=== PATIENT | male | born 1965 | race Caucasian/White ===

== ENCOUNTER 2021-03-01 10:57 | Inpatient (IN) | payer OTHER ==
[2021-03-01] VITALS (22 sets, daily range): BP systolic 90–149; BP diastolic 9–108; Ht 177.8 cm; Wt 113.9 kg
[~2021-03-01] VITALS: Ht 177.8 cm; Wt 113.9 kg
[2021-03-01] MEDS ORDERED: ZIPSOR25 MG PO (11:12)
[2021-03-01] MEDS ORDERED: HYDROXYCHLOROQ200 MG PO (11:13)
[2021-03-01] MEDS ORDERED: ZOLOFT100 MG PO (11:13)
[2021-03-01] MEDS ORDERED: LISINOPRIL2.5 MG PO (11:14)
[2021-03-01] MEDS ORDERED: CLARITIN 10 MG10 MG PO (11:15)
[2021-03-01 11:21] LABS: BASOPHILS 0.7 % (0-2); EOSINOPHILS 1.1 % (0-7); HEMATOCRIT 41.3 % (42.0-54.0); HEMOGLOBIN 13.4 g/dL (13.5-17.5); IMMATURE GRANULOCYTES 0.1 % (0-5); LYMPHOCYTE ABS# 1.37 10x3/uL (1.32-3.57); MCH 27.9 pg (26.0-34.0); MCHC 32.4 g/dL (31.0-37.0); MONOCYTES 12.1 % (2-11); NEUTROPHIL ABS# 6.49 10x3/uL (1.78-5.38); RDW 14.9 % (11.5-14.5); WBC 9.1 10x3/uL (4.8-10.8)
[2021-03-01 11:30] LABS: CALC OSMOLALITY 278 mosm/kg (275-300); CALCIUM 8.7 mg/dL (8.5-10.1); CARBON DIOXIDE 25.5 mmol/L (21.0-32.0); CHLORIDE - SERUM 102 mmol/L (98-107); CREATININE - SERUM 1.4 mg/dL (0.6-1.3); GLUCOSE 138 mg/dL (74-106); POTASSIUM - SERUM 3.1 mmol/L (3.5-5.1); SODIUM 137 mmol/L (136-145); UREA NITROGEN 21 mg/dL (7-18); eGFR NON AFRICAN AMERICAN 56 mL/min (90-120)
[2021-03-01 11:38] LABS: ALBUMIN 3.1 g/dL (3.4-5.0); ALKALINE PHOSPHATASE 129 U/L (30-120); ALT (SGPT) 482 U/L (10-68); AMYLASE - SERUM 23 U/L (25-115); BILIRUBIN - TOTAL 1.36 mg/dL (0.2-1.3); LIPASE 275 U/L (73-393); PROTEIN - SERUM 7.1 g/dL (6.4-8.2); TROPONIN-I < 0.017 ng/mL (0.000-0.060)
[2021-03-01 11:40] LABS: PLATELET COUNT 296 10x3/uL (130-400)
[2021-03-01 11:47] LABS: APTT 29.4 SECONDS (22.8-39.4); INR 1.52 (0.85-1.17)
[2021-03-01 12:01] LABS: CKMB 0.2 U/L (0.0-3.6); CREATINE KINASE 38 UL (21-232); PRO BNP 4436 pg/mL (0-125)
[2021-03-01 13:30] LABS: UDS - AMPHET NEGATIVE QUAL (NEGATIVE); UDS - BARB NEGATIVE QUAL (NEGATIVE); UDS - BENZO NEGATIVE QUAL (NEGATIVE); UDS - COCAINE NEGATIVE QUAL (NEGATIVE); UDS - OPIATE POSITIVE QUAL (NEGATIVE); UDS - PCP NEGATIVE QUAL (NEGATIVE); UDS - THC NEGATIVE QUAL (NEGATIVE)
[2021-03-01 13:34] LABS: BILIRUBIN NEGATIVE (NEGATIVE); KETONE NEGATIVE (NEGATIVE); NITRITE NEGATIVE (NEGATIVE)
[2021-03-01 13:35] LABS: BACTERIA OCC HPF (NONE SEEN); WHITE CELLS - URINE 0-5 HPF (0-1)
--- NOTE | 2021-03-01 16:00 | NUR ---
Pt [facility] Md aware and call to PCP aware who states to admit here. Pt and family informed.
--- NOTE | 2021-03-01 18:20 | NUR ---
RECEIVED PT TO ICU 3 VIA STRECTHER FROM ER, PT ALERT AND ORIENTED, PT PLACED ON WOOD FINISHER, st NOTED, HR 128, BP 100/82, O2 SAT 97% ON 3lnc, PIV TO RIGHT AC 20G WITH NS BOLUS INFUSING AND RAVIN AT 20MCG/MIN, PT DENIES PAIN, CALL LIGHT IN REACH, WILL MONTIOR
--- NOTE | 2021-03-01 18:25 | NUR ---
NS BOLUS AND NEOSYNEPHRINE GTT STOPPED AT 1820
--- NOTE | 2021-03-01 19:00 | NUR ---
RECEIVED BEDSIDE REPORT. ROUNDING COMPLETE. PATIENT IS ALERT AND ORIENTED, RESTING IN BED. PATIENT REMAINS SHORT OF BREATH. NO C/O PAIN. CALL LIGHT WITHIN REACH. WILL CPOC.
[2021-03-01 19:19] LABS: ERYTHROCYTE SEDIMENTATION RATE 13 mm/hr (0-20)
[2021-03-01 19:59] LABS: CKMB 0.4 U/L (0.0-3.6); CREATINE KINASE 46 UL (21-232); MAGNESIUM - SERUM 1.9 mg/dL (1.8-2.4); TROPONIN-I < 0.017 ng/mL (0.000-0.060)
--- NOTE | 2021-03-01 23:43 | NUR ---
PATIENT RESTING COMFORTABLY. NO S/S OF DISTRESS. NO C/O PAIN. BP HAS REMAINED STABLE. LAST BP 117/87. DECREASED RAVIN FROM 20 MCG TO 10 MCG. DENIED NEEDS AT THIS TIME. CALL LIGHT WITHIN REACH. WILL CPOC.
[2021-03-02] VITALS (19 sets, daily range): BP systolic 71–147; BP diastolic 44–125
[2021-03-02 01:29] LABS: CKMB 0.3 U/L (0.0-3.6); CREATINE KINASE 51 UL (21-232); TROPONIN-I < 0.017 ng/mL (0.000-0.060)
[2021-03-02 07:48] LABS: APTT 30.5 SECONDS (22.8-39.4); INR 1.53 (0.85-1.17); PROTIME 17.1 SECONDS (11.6-15.0)
[2021-03-02 07:56] LABS: ALKALINE PHOSPHATASE 117 U/L (30-120); ALT (SGPT) 403 U/L (10-68); BILIRUBIN - TOTAL 0.98 mg/dL (0.2-1.3); CALC OSMOLALITY 280 mosm/kg (275-300); CALCIUM 8.4 mg/dL (8.5-10.1); CHLORIDE - SERUM 102 mmol/L (98-107); CKMB 0.4 U/L (0.0-3.6); CREATINE KINASE 45 UL (21-232); CREATININE - SERUM 1.4 mg/dL (0.6-1.3); MAGNESIUM - SERUM 2.1 mg/dL (1.8-2.4); POTASSIUM - SERUM 3.5 mmol/L (3.5-5.1); PROTEIN - SERUM 6.8 g/dL (6.4-8.2); SODIUM 136 mmol/L (136-145); TROPONIN-I 0.017 ng/mL (0.000-0.060); UREA NITROGEN 20 mg/dL (7-18); eGFR NON AFRICAN AMERICAN 56 mL/min (90-120)
[2021-03-02 08:01] LABS: GLUCOSE 211 mg/dL (74-106)
[2021-03-02 08:17] LABS: BASOPHILS 0.7 % (0-2); EOSINOPHILS 2.7 % (0-7); HEMATOCRIT 39.6 % (42.0-54.0); HEMOGLOBIN 12.8 g/dL (13.5-17.5); IMMATURE GRANULOCYTES 0.1 % (0-5); LYMPHOCYTE ABS# 1.21 10x3/uL (1.32-3.57); LYMPHOCYTES 17.9 % (15-50); MCH 27.9 pg (26.0-34.0); MCHC 32.3 g/dL (31.0-37.0); MCV 86.3 fL (80.0-100.0); MEAN PLATELET VOLUME 10.2 fL (7.4-10.4); MONOCYTES 13.3 % (2-11); NEUTROPHIL ABS# 4.41 10x3/uL (1.78-5.38); NEUTROPHILS 65.3 % (40-80); PLATELET COUNT 287 10x3/uL (130-400); RBC 4.59 10x6/uL (4.20-6.10); RDW 15.2 % (11.5-14.5)
[2021-03-02 08:27] LABS: WBC 6.8 10x3/uL (4.8-10.8)
--- NOTE | 2021-03-02 11:44 | NUR ---
PATIENT TRANSFERED TO ICU 6 FROM THE FLOOR AND REPORT TAKEN FROM JOVANY. IV NOT WORKING AND NUMEROUS ATTEMPT DONE AND [address] LEFT AC IN PLACE AT THIS TIME AND HEPARIN INFUSING PER ORDERS. PURE WICK PLACED AND PATIENT IS INCONTINENT AT ALL TIMES. ORDERS NOTED.
--- NOTE | 2021-03-02 14:15 | CN ---
PATIENT NAME:SARTHAK MEZA MEDICAL RECORD: [id number] : 67 LOCATION:[facility].2303 ADMIT DATE: 03/01/21 ACCOUNT: [id number] CONSULTING PHYSICIAN: RADHA CATHERINE MD REFERRING PHYSICIAN: EDDIE ROMERO MD DATE OF CONSULTATION: 03/01/2021 CARDIOLOGY CONSULTATION HISTORY OF PRESENT ILLNESS: A 55-year-old gentleman with history of hypertension and heavy alcohol use, presented in the ER with approximately a month history of symptoms of heart racing, shortness of breath, generalized malaise, fatigue and noticed over the last week increasing edema. Symptoms finally began progressing to class II-III symptomatology and he presented to the ER. He is noted to be in both atrial fib and atrial flutter at this point, although probably third spacing with actual intravascular volume depletion with elevated BUN and creatinine as well as elevated BNP. We are asked to see him concerning his cardiovascular status. PAST MEDICAL HISTORY: Includes: 1. History of hypertension. 2. Osteoarthritis. MEDICATIONS: Chronically include Zoloft 100 mg p.o. b.i.d., diclofenac 25 b.i.d., lisinopril 2.5 q. day, Plaquenil 200 b.i.d. ALLERGIES: None known. SOCIAL HISTORY: Smokes about a pack a day. Drinks, heavy intermittently. No sort of exercise program. He is able to take care of all his LDLs. REVIEW OF SYSTEMS: The patient reports easy bruising but reports no swollen glands. The patient reports no fever, no night sweats, no significant weight gain, no significant weight loss. No significant exercise tolerance. The patient reports no dry eyes, no irritation, no vision change. Patient reports no difficulty hearing and no ear pain. Patient reports no frequent nose bleeds or nose and sinus problems. Patient reports on arm pain on exertion. No shortness of breath while lying down. No history of heart murmur. Patient reports no cough, no wheezing or coughing up blood. Patient reports no abdominal pain, no vomiting. Normal appetite. No diarrhea and not vomiting blood. No nausea and no constipation. Patient reports no incontinence. No difficulty urinating. No hematuria. No increased frequency. Patient reports no muscle aches. No weakness, no arthralgias, no back pain. No swelling of the extremities. Patient reports no abnormal mole, no jaundice, no rashes. Reports no loss of consciousness. No weakness and no numbness. No seizures, dizziness, or headaches. The patient reports no depression, no sleep disturbance, feeling safe in a relationship and no alcohol abuse. Patient reports on fatigue. Reports no runny nose or sinus pressure. No itching, no hives, and no frequent sneezing. PHYSICAL EXAMINATION: GENERAL: No acute distress. Appears stated age. VITAL SIGNS: Currently 93/62; pulse 128, irregular. HEENT: Normocephalic, atraumatic. NECK: No bruits noted. CONSULT REPORT [id number] SUSANASARTHAK Tovar HEART: Tachycardic. II/ systolic ejection murmur. Questionable S3 gallop. LUNGS: Fair excursion. ABDOMEN: Soft and nontender. EXTREMITIES: Pulses 2+. There is 1+ edema. NEUROLOGIC: Grossly intact. IMPRESSION: Suspect significant third spacing, certainly could be secondary to cirrhosis. 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 PLAN: At this point in time, we will give digoxin IV for rate control as well as start amiodarone drip, low-dose Aldactone. Fluid management may be an issue with ongoing third spacing at this point. Further recommendations based on clinical course. TRANSINT:[id number] Voice Confirmation ID: [id number] DOCUMENT ID: [id number] RADHA CATHERINE MD at 1415 CC: [id number] DICTATION DATE: 03/01/211927 INSPECTOR PAPER PRODUCTS: 03/02/21 0506 ADM IN [id number] [place] [address]
--- NOTE | 2021-03-02 14:15 | EC ---
PATIENT:SARTHAK MEZA DATE OF SERVICE: 03/01/21 SEX: M MEDICAL RECORD: [id number] DATE OF : 67 LOCATION:[facility] D230 AGE OF PATIENT: 55 ADMISSION DATE: 03/01/21 REFERRING PHYSICIAN: INTERPRETING PHYSICIAN: RADHA CATHERINE MD ECHOCARDIOGRAM REPORT ECHO CHARGES 4 ECHO COMPLETE Date: 03/02/21 CLINICAL DIAGNOSIS: ATRIAL FLUTTER ECHOCARDIOGRAPHIC MEASUREMENTS (adult normal given) AC root (d.<3.7cm) 3.0 cm LV Septum d (<1.2 cm> 0.8 cm Valve Excursion 1.7 cm LV Septum (systole) 1.2 cm Left Atria (s.<4.0cm> 4.2 cm LVPW d(<1.2cm) 0.8 cm RV (d.<2.3cm) 4.2 cm LVPW (sytole) 1.3 cm LV diastole(<5.6CM) 5.2 cm MV E-F(>70mm/sec) cm LV systole 3.8 cm LVOT Diameter 1.5 cm MV exc.(>10mm) 1.1 cm Est.ejection fraction (50-75%) % DOPPLER: LVIT cm/sec A 82 cm/sec E 121 cm/sec LA cm/sec RVSP 37 mmHg LVOT 87 cm/sec AOP1/2T m/s Asc. Ao 106 cm/sec RVOT 35 cm/sec RA cm/sec PA 71 cm/sec AV Gradient Peak 4.5 mmHg AV Mean 2.7 mmHg AV Area 1.8 cm MV Gradient Peak 13.5 mmHg MV Mean 6.3 mmHg MV Area cm COMMENTS: Cardiac Technologist: Guadalupe CLARK Shipping Manager: 3 Dr. Blake TAPE# Pericardial Effusion N DATE OF SERVICE: Adequate 2D, color flow imaging, spectral Doppler, and M-Mode. FINDINGS: No LVH. LV internal dimensions are normal. Wall motion shows LV appeared to be mildly globally hypo with EF lower limits of normal, mildly reduced, 45% to 50%. Aortic valve is sclerosed without stenosis by Doppler interrogation. Left atrium is mildly dilated at 4.2 cm. Mitral valve shows no prolapse. Trace MR. Right side is grossly normal. Trace TR. ECHOCARDIOGRAM REPORT [id number] SARTHAK MEZA TRANSINT:[id number] Voice Confirmation ID: [id number] DOCUMENT ID: [id number] RADHA CATHERINE MD at 1415 CC: [id number] DICTATION DATE: 03/02/21 1248 ONLINE MERCHANT: 03/02/21 1320 ADM IN [facility] [address] [id number]
--- NOTE | 2021-03-02 14:45 | NUR ---
PATIENT DOES NOT WANT TO BATH AT THIS TIME SAYS HE IS TIRED AND HE STILL BECOMES VERY SOB ON ANY TYPE OF EXERTION. ATTEMPTED TO START NEW IV X2 WITH NO SUCCESS HITTING VALVES BOTH TIMES. PATIENT WITH NO COMPLAINTS AT THIS TIME.
--- NOTE | 2021-03-02 14:55 | NUR ---
OK TO TRANSFER TO THE FLOOR FROM CARDIOLOGY STANDPOINT
--- NOTE | 2021-03-02 17:28 | NUR ---
PATIENT RECIEVED FROM ICU. AMIO GTT AT 0.5 INFUSING. SITTING UP ON SIDE OF BED EATING DINNER. APPROPRIATE WITH NURSE.
--- NOTE | 2021-03-02 19:30 | NUR ---
PT IN BED, AAO X 3, RESP EVEN AND UNLABORED, NO DISTRESS NOTED, CL IN REACH, SR UP X 2.
[2021-03-03 05:03] VITALS: BP 117/72
[2021-03-03 05:22] LABS: BASOPHILS 0.4 % (0-2); EOSINOPHILS 4.1 % (0-7); HEMATOCRIT 40.5 % (42.0-54.0); HEMOGLOBIN 12.8 g/dL (13.5-17.5); IMMATURE GRANULOCYTES 0.1 % (0-5); MCH 27.5 pg (26.0-34.0); MCHC 31.6 g/dL (31.0-37.0); MCV 86.9 fL (80.0-100.0); MEAN PLATELET VOLUME 10.5 fL (7.4-10.4); MONOCYTES 14.6 % (2-11); NEUTROPHIL ABS# 4.75 10x3/uL (1.78-5.38); NEUTROPHILS 56.8 % (40-80); PLATELET COUNT 280 10x3/uL (130-400); RBC 4.66 10x6/uL (4.20-6.10); RDW 15.3 % (11.5-14.5); WBC 8.4 10x3/uL (4.8-10.8)
[2021-03-03 05:35] LABS: APTT 31.4 SECONDS (22.8-39.4); INR 1.46 (0.85-1.17); PROTIME 16.4 SECONDS (11.6-15.0)
[2021-03-03 05:39] LABS: ANION GAP 12.1 mmol/L (8-16); BILIRUBIN - TOTAL 0.81 mg/dL (0.2-1.3); CALCIUM 8.3 mg/dL (8.5-10.1); CARBON DIOXIDE 24.6 mmol/L (21.0-32.0); CREATININE - SERUM 1.2 mg/dL (0.6-1.3); POTASSIUM - SERUM 3.7 mmol/L (3.5-5.1); PROTEIN - SERUM 6.8 g/dL (6.4-8.2)
--- NOTE | 2021-03-03 06:18 | NUR ---
I have reviewed this patient and I concur with the Shift Assessment completed by the Licensed Practical Nurse today this shift.
--- NOTE | 2021-03-03 07:30 | NUR ---
Lying in bed, awake/alert/oriented, T/R self ad mann, cont of B/B with BRPs per self ad mann, denies pain/other discomfort at this time, call light/phone/water within reach, no s/s of acute distress observed.
[2021-03-03 08:03] VITALS: BP 136/97
--- NOTE | 2021-03-03 10:55 | NUR ---
PAGE INTO CARLOS SUNSHINE APN TO SEE IF PATIENT CAN SWITCH TO ORAL CORDARONE. AWAITNG CALL BACK.
[2021-03-03 12:01] VITALS: BP 124/87
[2021-03-03] MEDS ORDERED: ALDACTONE25 MG PO (12:17)
[2021-03-03] MEDS ORDERED: PACERONE200 MG PO (12:17)
--- NOTE | 2021-03-03 13:10 | MORECARE ---
CASE MANAGEMENT DISCHARGE SUMMARY PATIENT: SARTHAK MEZA UNIT: [id number] ADM DATE: 03/01/21 AGE: 55 : 67 SEX: M ROOM/BED: D.2115 AUTHOR: BK IRVING PHYSICIAN: REFERRING PHYSICIAN: EDDIE ROMERO MD DATE OF SERVICE: 03/03/21 Case Management Discharge Planning Summary DCP REVIEW SUMMARY ANTICIPATED D/C DATE: EXPECTED LOS : CASE STATUS: DCP Initiated INITIAL REVIEW: 03/03/2021 INITIAL REVIEWER: Ena Phillip FINAL DISCHARGE DISPOSITION: : FINAL REVIEWER: FINAL REVIEW DATE: DCP Focus Questions & Answers DCP Screen QUESTION: ANSWER High Risk Factors: : None Walking limitation: Patient stated self rated walking limitation present? : No Age: : 45 - 64 Prior living environment: : Lives with others Disability ranking: : Grade 1: No significant disability DCP Evaluation QUESTION: ANSWER Patient's ability to cope with chronic illness : d. No chronic illness Would patient like to participate in any Care Coordination programs (if applicable): : Not applicable Mental health screen: : No mental health history DCP Re-evaluation QUESTION: ANSWER Would patient like to participate in any Care Coordination programs (if applicable): : Not applicable PATIENT: SARTHAK MEZA ENCOUNTER: [id number] MEDICAL RECORD#: [id number] ADMISSION DATE: 03/01/2021 DISCHARGE DATE: ATTENDING MD: EDDIE ARGUELLO : AGE: 55 MARITAL STATUS: M DC PLAN ID: [id number] FACILITY: [facility] PRINTED ON: 03/03/21 13:10 CT All edits/amendments must be made on the electronic document DICTATION DATE: 03/03/21 131 MEDICAL RECEPTIONIST MEDICAL ASSISTANT: DM 03/03/21 1310 RPT#: [id number] DC DATE: STATUS: ADM IN [facility] [address] [place] [address] END OF REPORT
--- NOTE | 2021-03-03 13:22 | MORECARE ---
CASE MANAGEMENT DISCHARGE SUMMARY PATIENT: SARTHAK HICKS UNIT: [id number] ADM DATE: 03/01/21 AGE: 55 : 67 SEX: M ROOM/BED: D.2118 AUTHOR: BK IRVING PHYSICIAN: REFERRING PHYSICIAN: EDDIE ROMERO MD DATE OF SERVICE: 03/03/21 Case Management Discharge Planning Summary COMMENTS ENTERED DATE: 03/03/21 13:12 CT COMMENT TYPE: Discharge Planning REVIEWER: Ena Phillip CM received discharge orders and spoke with patient to discuss discharge planning/needs. He states he lives with his in a one story home. States he has 2 steps to enter the home. States he is independent with all ADL's and AIDL's. States his primary care is at [facility], states "I don't go like I should, I think there's a nurse practicioner there named Luann Hicks. I informed him of availability of home health and DME, he declines needs at this time. He is wearing oxygen via NC at this time, so he removed it so a walk test could be done. I called RT for a walk test to assess for home oxygen needs. CM will continue to follow and assist with discharge planning/needs. DCP REVIEW SUMMARY ANTICIPATED D/C DATE: EXPECTED LOS : CASE STATUS: DCP Initiated INITIAL REVIEW: 03/03/2021 INITIAL REVIEWER: Ena Phillip FINAL DISCHARGE DISPOSITION: : FINAL REVIEWER: FINAL REVIEW DATE: DCP Focus Questions & Answers DCP Screen QUESTION: ANSWER High Risk Factors: : None Walking limitation: Patient stated self rated walking limitation present? : No Age: : 45 - 64 Prior living environment: : Lives with others Disability ranking: : Grade 1: No significant disability DCP Evaluation QUESTION: ANSWER Patient and/or caregiver agree upon recommended discharge plan? : Yes Patient's current cognitive status: : *Oriented to person, place, situation, time and present Patient's ability to cope with chronic illness : d. No chronic illness Patient gives permission to discuss discharge plans with: (name, relationship and number) : Tessa Hicks - spouse - [phone] Does the patient have the ability to pay for or attain post discharge needs / services? : Yes Functional screen assessment: : Basic needs can adequately be met by self Family / Caregiver's ability to cope with chronic illness: : a. Adequate (ability to meet patient's medical needs, ensures patient attends medical appts.) Physical Status: : Independent with ADL's Equipment needed for post hospitalization: : None Is there a likelihood that the patient will require additional services to return to the preadmission environment? : No Living Arrangements: : Home with Spouse/Significant Other Results of this evaluation have been discussed with: : Patient Patient with capacity for self-care or can be cared for in same environment as prior to hospitalization? : Yes Baseline cognitive status: : *Oriented to person, place, situation, time and present Physical environment modification needed / anticipated for discharge: : No Preadmission facility can/cannot provide post hospital level of care needs: : Can - at same level of care as preadmission Medication Management: : Patient states can read and understand medication labels Medication Management: : Patient states can afford medications Pharmacy [facility] : [facility] Does Patient have transportation to get home and to follow-up medical appointments when discharged from the hospital? : Yes Would patient like to participate in any Care Coordination programs (if applicable): : Not applicable Equipment in use: : None Mental health screen: : No mental health history [facility] Contact information for resources in use: : [facility] clinic DCP Re-evaluation QUESTION: ANSWER Would patient like to participate in any Care Coordination programs (if applicable): : Not applicable PATIENT: SARTHAK HICKS ENCOUNTER: [id number] MEDICAL RECORD#: [id number] ADMISSION DATE: 03/01/2021 DISCHARGE DATE: ATTENDING MD: EDDIE ARGUELLO : AGE: 55 MARITAL STATUS: M DC PLAN ID: [id number] FACILITY: [facility] PRINTED ON: 03/03/21 13:22 CT All edits/amendments must be made on the electronic document DICTATION DATE: 03/03/21 132 GRAIN ELEVATOR SUPERINTENDENT: ROBERT 03/03/21 1322 RPT#: [id number] DC DATE: STATUS: ADM IN [facility] [address] [place] [address] END OF REPORT
--- NOTE | 2021-03-03 13:30 | NUR ---
Provided discharge instructions/education to which pt voiced understanding.
--- NOTE | 2021-03-03 13:35 | MORECARE ---
CASE MANAGEMENT DISCHARGE SUMMARY PATIENT: SARTHAK HICKS UNIT: [id number] ADM DATE: 03/01/21 AGE: 55 : 67 SEX: M ROOM/BED: D.2115 AUTHOR: MARIA FERNANDA,DOC PHYSICIAN: REFERRING PHYSICIAN: EDDIE ROMERO MD DATE OF SERVICE: 03/03/21 Case Management Discharge Planning Summary COMMENTS ENTERED DATE: 03/03/21 13:32 CT COMMENT TYPE: Discharge Planning REVIEWER: Ena Phillip Walk test shows oxygen sat at 89% at rest and 88% with exertion. Oxygen placed on at 2 liters NC and recovered to 94%. I called Ranjan with the [place] oxygen company and gave him this information and he will have a portable tank delivered here and concentrator to the home. I informed the patient and primary nurse, Jolene. ENTERED DATE: 03/03/21 13:12 CT COMMENT TYPE: Discharge Planning REVIEWER: Ena Phillip CM received discharge orders and spoke with patient to discuss discharge planning/needs. He states he lives with his in a one story home. States he has 2 steps to enter the home. States he is independent with all ADL's and AIDL's. States his primary care is at [facility], states "I don't go like I should, I think there's a nurse practicioner there named Luann Hicks. I informed him of availability of home health and DME, he declines needs at this time. He is wearing oxygen via NC at this time, so he removed it so a walk test could be done. I called RT for a walk test to assess for home oxygen needs. CM will continue to follow and assist with discharge planning/needs. DCP REVIEW SUMMARY ANTICIPATED D/C DATE: EXPECTED LOS : CASE STATUS: DCP Initiated INITIAL REVIEW: 03/03/2021 INITIAL REVIEWER: Ena Phillip FINAL DISCHARGE DISPOSITION: : FINAL REVIEWER: FINAL REVIEW DATE: DCP Focus Questions & Answers DCP Screen QUESTION: ANSWER High Risk Factors: : None Walking limitation: Patient stated self rated walking limitation present? : No Age: : 45 - 64 Prior living environment: : Lives with others Disability ranking: : Grade 1: No significant disability DCP Evaluation QUESTION: ANSWER Patient and/or caregiver agree upon recommended discharge plan? : Yes Patient's current cognitive status: : *Oriented to person, place, situation, time and present Patient's ability to cope with chronic illness : d. No chronic illness Patient gives permission to discuss discharge plans with: (name, relationship and number) : Tessa Hicks - spouse - [phone] Does the patient have the ability to pay for or attain post discharge needs / services? : Yes Functional screen assessment: : Basic needs can adequately be met by self Family / Caregiver's ability to cope with chronic illness: : a. Adequate (ability to meet patient's medical needs, ensures patient attends medical appts.) Physical Status: : Independent with ADL's Equipment needed for post hospitalization: : None Is there a likelihood that the patient will require additional services to return to the preadmission environment? : No Living Arrangements: : Home with Spouse/Significant Other Results of this evaluation have been discussed with: : Patient Patient with capacity for self-care or can be cared for in same environment as prior to hospitalization? : Yes Baseline cognitive status: : *Oriented to person, place, situation, time and present Physical environment modification needed / anticipated for discharge: : No Preadmission facility can/cannot provide post hospital level of care needs: : Can - at same level of care as preadmission Medication Management: : Patient states can read and understand medication labels Medication Management: : Patient states can afford medications Pharmacy [facility](s): : [facility] Does Patient have transportation to get home and to follow-up medical appointments when discharged from the hospital? : Yes Would patient like to participate in any Care Coordination programs (if applicable): : Not applicable Equipment in use: : None Mental health screen: : No mental health history Resources / Services in place: : [place] [facility] Contact information for resources in use: : [facility] DCP Re-evaluation QUESTION: ANSWER Would patient like to participate in any Care Coordination programs (if applicable): : Not applicable PATIENT: SARTHAK HICKS ENCOUNTER: [id number] MEDICAL RECORD#: [id number] ADMISSION DATE: 03/01/2021 DISCHARGE DATE: ATTENDING MD: EDDIE ARGUELLO : AGE: 55 MARITAL STATUS: M DC PLAN ID: [id number] FACILITY: [facility] PRINTED ON: 03/03/21 13:34 CT All edits/amendments must be made on the electronic document DICTATION DATE: 03/03/211333 CUSTOMER SUPPORT ENGINEER: ROBERT 03/03/211333 RPT#: [id number] DC DATE: STATUS: ADM IN [facility] [address] [place] [address] END OF REPORT
[2021-03-03 14:11] LABS: HEPATITIS C ANTIBODY <0.1 (0.0-0.9)
[2021-03-03 15:58] VITALS: BP 124/75
--- NOTE | 2021-03-03 17:17 | MORECARE ---
CASE MANAGEMENT DISCHARGE SUMMARY PATIENT: SARTHAK HICKS UNIT: [id number] ADM DATE: 03/01/21 AGE: 55 : 67 SEX: M ROOM/BED: D.6625 AUTHOR: MARIA FERNANDA,DOC PHYSICIAN: REFERRING PHYSICIAN: EDDIE ROMERO MD DATE OF SERVICE: 03/03/21 Case Management Discharge Planning Summary COMMENTS ENTERED DATE: 03/03/21 17:09 CT COMMENT TYPE: Discharge Planning REVIEWER: Ena Phillip CM spoke with patient to see if the oxygen person has notified him that they are coming. He states that someone called him and said they were 15 minutes away and would follow him home to set up the oxygen at his home. [facility] ENTERED DATE: 03/03/21 13:32 CT COMMENT TYPE: Discharge Planning REVIEWER: Ena Phillip Walk test shows oxygen sat at 89% at rest and 88% with exertion. Oxygen placed on at 2 liters NC and recovered to 94%. I called Ranjan with the [place] oxygen company and gave him this information and he will have a portable tank delivered here and concentrator to the home. I informed the patient and primary nurse, Jolene. ENTERED DATE: 03/03/21 13:12 CT COMMENT TYPE: Discharge Planning REVIEWER: Ena Phillip CM received discharge orders and spoke with patient to discuss discharge planning/needs. He states he lives with his in a one story home. States he has 2 steps to enter the home. States he is independent with all ADL's and AIDL's. States his primary care is at [facility], states "I don't go like I should, I think there's a nurse practicioner there named Luann Hicks. I informed him of availability of home health and DME, he declines needs at this time. He is wearing oxygen via [place] at this time, so he removed it so a walk test could be done. I called RT for a walk test to assess for home oxygen needs. CM will continue to follow and assist with discharge planning/needs. DCP REVIEW SUMMARY ANTICIPATED D/C DATE: EXPECTED LOS : CASE STATUS: DCP Initiated INITIAL REVIEW: 03/03/2021 INITIAL REVIEWER: Ena Phillip FINAL DISCHARGE DISPOSITION: : FINAL REVIEWER: FINAL REVIEW DATE: DCP Focus Questions & Answers DCP Screen QUESTION: ANSWER High Risk Factors: : None Walking limitation: Patient stated self rated walking limitation present? : No Age: : 46 - 65 Prior living environment: : Lives with others Disability ranking: : Grade 1: No significant disability DCP Evaluation QUESTION: ANSWER Patient and/or caregiver agree upon recommended discharge plan? : Yes Patient's current cognitive status: : *Oriented to person, place, situation, time and present Patient's ability to cope with chronic illness : d. No chronic illness Patient gives permission to discuss discharge plans with: (name, relationship and number) : Tessa Hicks [facility] - [phone] Does the patient have the ability to pay for or attain post discharge needs / services? : Yes Functional screen assessment: : Basic needs can adequately be met by self Family / Caregiver's ability to cope with chronic illness: : a. Adequate (ability to meet patient's medical needs, ensures patient attends medical appts.) Physical Status: : Independent with ADL's Equipment needed for post hospitalization: : None Is there a likelihood that the patient will require additional services to return to the preadmission environment? : No Living Arrangements: : Home with Spouse/Significant Other Results of this evaluation have been discussed with: : Patient Patient with capacity for self-care or can be cared for in same environment as prior to hospitalization? : Yes Baseline cognitive status: : *Oriented to person, place, situation, time and present Physical environment modification needed / anticipated for discharge: : No Preadmission facility can/cannot provide post hospital level of care needs: : Can - at same level of care as preadmission Medication Management: : Patient states can read and understand medication labels Medication Management: : Patient states can afford medications Pharmacy name([facility] : [facility] Does Patient have transportation to get home and to follow-up medical appointments when discharged from the hospital? : Yes Would patient like to participate in any Care Coordination programs (if applicable): : Not applicable Equipment in use: : None Mental health screen: : No mental health history Resources / Services in place: : [facility] Contact information for resources in use: : [facility] DCP Re-evaluation QUESTION: ANSWER Would patient like to participate in any Care Coordination programs (if applicable): : Not applicable PATIENT: SARTHAK HICKS ENCOUNTER: [id number] MEDICAL RECORD#: [id number] ADMISSION DATE: 03/01/2021 DISCHARGE DATE: ATTENDING MD: EDDIE ARGUELLO : AGE: 55 MARITAL STATUS: M DC PLAN ID: [id number] FACILITY: [facility] PRINTED ON: 03/03/21 17:17 CT All edits/amendments must be made on the electronic document DICTATION DATE: 03/03/211716 TAKE OFF WORKER: ROBERT 03/03/211716 RPT#: [id number] DC DATE: STATUS: ADM IN [facility] [address] [place] [address] END OF REPORT
--- NOTE | 2021-03-03 18:11 | NUR ---
ONE TIME DOSE CORDARONE GIVEN WITH EVENING DOSE OF ALDACTONE DUE TO FAMILY NOT BEING ABLE TO GET SCRIPTS FILLED TILL IN MORNING. PORTABLE OXYGEN DELIVERED.
--- NOTE | 2021-03-05 17:22 | MORECARE ---
CASE MANAGEMENT DISCHARGE SUMMARY PATIENT: SARTHAK HICKS UNIT: [id number] ADM DATE: 03/01/21 AGE: 56 : 67 SEX: M ROOM/BED: D.5575 AUTHOR: MARIA FERNANDA,DOC PHYSICIAN: REFERRING PHYSICIAN: EDDIE ROMERO MD DATE OF SERVICE: 03/05/21 Case Management Discharge Planning Summary COMMENTS ENTERED DATE: 03/03/21 17:09 CT COMMENT TYPE: Discharge Planning REVIEWER: Ena Phillip CM spoke with patient to see if the oxygen person has notified him that they are coming. He states that someone called him and said they were 15 minutes away and would follow him home to set up the oxygen at his home. [facility] ENTERED DATE: 03/03/21 13:32 CT COMMENT TYPE: Discharge Planning REVIEWER: Ena Phillip Walk test shows oxygen sat at 89% at rest and 88% with exertion. Oxygen placed on at 2 liters NC and recovered to 94%. I called Ranjan with the [place] oxygen company and gave him this information and he will have a portable tank delivered here and concentrator to the home. I informed the patient and primary nurse, Jolene. ENTERED DATE: 03/03/21 13:12 CT COMMENT TYPE: Discharge Planning REVIEWER: Ena Phillip CM received discharge orders and spoke with patient to discuss discharge planning/needs. He states he lives with his in a one story home. States he has 2 steps to enter the home. States he is independent with all ADL's and AIDL's. States his primary care is at [facility], states "I don't go like I should, I think there's a nurse practicioner there named Luann Hicks. I informed him of availability of home health and DME, he declines needs at this time. He is wearing oxygen via [place] at this time, so he removed it so a walk test could be done. I called RT for a walk test to assess for home oxygen needs. CM will continue to follow and assist with discharge planning/needs. DCP REVIEW SUMMARY ANTICIPATED D/C DATE: EXPECTED LOS : 0 CASE STATUS: DCP Complete INITIAL REVIEW: 03/03/2021 INITIAL REVIEWER: Ena Phillip FINAL DISCHARGE DISPOSITION: 01 : Home or Self Care (Routine Discharge) FINAL REVIEWER: Ena Phillip FINAL REVIEW DATE: 03/05/2021 DCP Focus Questions & Answers DCP Screen QUESTION: ANSWER High Risk Factors: : None Walking limitation: Patient stated self rated walking limitation present? : No Age: : 46 - 65 Prior living environment: : Lives with others Disability ranking: : Grade 1: No significant disability DCP Evaluation QUESTION: ANSWER Patient gives permission to discuss discharge plans with: (name, relationship and number) : Tessa Hicks - [facility] - [phone] Patient's ability to cope with chronic illness : d. No chronic illness Patient's current cognitive status: : *Oriented to person, place, situation, time and present Patient and/or caregiver agree upon recommended discharge plan? : Yes Physical Status: : Independent with ADL's Family / Caregiver's ability to cope with chronic illness: : a. Adequate (ability to meet patient's medical needs, ensures patient attends medical appts.) Functional screen assessment: : Basic needs can adequately be met by self Does the patient have the ability to pay for or attain post discharge needs / services? : Yes Living Arrangements: : Home with Spouse/Significant Other Is there a likelihood that the patient will require additional services to return to the preadmission environment? : No Equipment needed for post hospitalization: : None Baseline cognitive status: : *Oriented to person, place, situation, time and present Patient with capacity for self-care or can be cared for in same environment as prior to hospitalization? : Yes Results of this evaluation have been discussed with: : Patient Preadmission facility can/cannot provide post hospital level of care needs: : Can - at same level of care as preadmission Physical environment modification needed / anticipated for discharge: : No Medication Management: : Patient states can afford medications Medication Management: : Patient states can read and understand medication labels [facility]acy [facility] : [facility] Does Patient have transportation to get home and to follow-up medical appointments when discharged from the hospital? : Yes Would patient like to participate in any Care Coordination programs (if applicable): : Not applicable Equipment in use: : None Mental health screen: : No mental health history Resources / Services in place: : [facility] Contact information for resources in use: : [facility] DCP Re-evaluation QUESTION: ANSWER Would patient like to participate in any Care Coordination programs (if applicable): : Not applicable PATIENT: SARTHAK HICKS ENCOUNTER: [id number] MEDICAL RECORD#: [id number] ADMISSION DATE: 03/01/2021 DISCHARGE DATE: 03/03/2021 ATTENDING MD: EDDIE ARGUELLO : AGE: 56 MARITAL STATUS: M DC PLAN ID: [id number] FACILITY: [facility] PRINTED ON: 03/05/21 17:22 CT All edits/amendments must be made on the electronic document DICTATION DATE: 03/05/211721 RESIDENTIAL LIFE DIRECTOR: ROBERT 03/05/211721 RPT#: [id number] DC DATE:03/03/21 STATUS: DIS IN [facility] [address] [place] [address] END OF REPORT
== END 2021-03-03 18:18 | disposition home or self-care (01) | DRG 308 ==
LOC: D.ER 10:57 → D.M2 17:13 → D.ICU 17:13 → OBSVTIME 23:00 → D.ICU 23:42 → D.M2 23:47 → D.SDCHOLD 03-02 16:56 → D.M2 03-02 16:57
PROVIDERS: Family Medicine; ADMIT Family Medicine; ATTEND Family Medicine
DX: I48.20 Chronic atrial fibrillation, unspecified (principal); I50.41 Acute combined systolic (congestive) and diastolic (congestive) heart failure; N17.9 Acute kidney failure, unspecified; I31.3 Pericardial effusion (noninflammatory); I95.9 Hypotension, unspecified; R74.01 Elevation of levels of liver transaminase levels; E80.6 Other disorders of bilirubin metabolism; D64.9 Anemia, unspecified; E87.6 Hypokalemia; K74.60 Unspecified cirrhosis of liver; I11.0 Hypertensive heart disease with heart failure; I42.9 Cardiomyopathy, unspecified

== ENCOUNTER → 2021-04-12 09:06 | Outpatient (CLI) | payer MEDICARE, OTHER ==
[2021-03-01 21:40] VITALS: BMI 35.9
[~2021-04-12 09:06] MED LIST: ALDACTONE25 MG PO; CLARITIN 10 MG10 MG PO; HYDROXYCHLOROQ200 MG PO; LISINOPRIL2.5 MG PO; PACERONE200 MG PO; ZIPSOR25 MG PO; ZOLOFT100 MG PO
== END | disposition home or self-care (01) ==
LOC: D.HCCARDIO 09:06
PROVIDERS: ATTEND Internal Medicine Interventional Cardiology
DX: I48.91 Unspecified atrial fibrillation (principal)

== ENCOUNTER 2021-04-19 07:06 | Day surgery (SDC) | payer MEDICARE, OTHER ==
[~2021-04-19] VITALS: Ht 177.8 cm; Wt 105.4 kg
--- NOTE | ~2021-04-19 | HEMODYNAMI ---
PATIENT:SARTHAK MEZA MEDICAL RECORD: [id number] : 67 LOCATION:[facility] ADMISSION DATE: 04/19/21 Generatedon:19:38 Patient name: SARTHAK MEZA Patient #: [id number] SSN: [id number] : 1965 Date of study: 04/19/2021 Page: Of Hemodynamic Procedure Report Patient Data Patient Demographics Procedure consent was obtained First Name: SARTHAK Gender: Male Last Name: SUSANA : 1965 Middle Initial: S Age: 56 year(s) Patient #: [id number] Race: Unknown SSN: [id number] Additional ID: [id number] Contact details Address: [address] [place] [address] State: [facility] Zip code: [address] Past Medical History Performed procedures and imaging results Date Procedure Procedure Results Comments Stress testing Positive->Intermediate with SPECT MPI risk Allergies: No known allergies Admission Admission Data Admission Date: 04/19/2021 Admission Time: 7:06 Arrival Date: 04/19/2021 Arrival Time: 0:00 Height (in.): 70 BSA: 2.22 (m2) Height (cm.): 177.8 BMI: 33.21 (kg/m2) Weight (lbs.): 231.49 Weight (kg.): 105 Lab Results Lab Result Date: 04/19/2021 Lab Result Time: 0:00 Biochemistry Name Units Result Min Max BUN mg/dl 25 --(----)-* 7 18 Creatinine mg/dl 1.3 --(---*)-- 0.6 1.3 eGFR ml/min 61.46809 *-(----)-- 90 120 NONAFRICAN CBC Name Units Result Min Max Hematocrit % 40.1 -*(----)-- 42 54 Hemoglobin g/dl 13.3 -*(----)-- 13.5 17.5 Procedure Procedure Types Cath Procedure Diagnostic Procedure LHC LHC w/Coronaries FFR/IVUS FFR Initial Sedation Charges Moderate Sedation 10-24 minutes PCI Procedure Hemochron ACT Test Procedure Description Procedure Date Procedure Date: 04/19/2021 Procedure Start Time: 9:14 Procedure End Time: 9:37 Procedure Staff Name Function Emma Tapia RT Monitor Leticia Artie RT Scrub Mannie Guzman RN Nurse Tacho Le MD Performing Physician Procedure Data Cath Procedure Fluoroscopy Diagnostic fluoroscopy Total fluoroscopy Time: 2.2 time: 2.2 min min Diagnostic fluoroscopy Total fluoroscopy dose: 819 dose: 819 mGy mGy Contrast Material Contrast Material Type Amount (ml) Isovue 300 100 Entry Location Entry Primary Successful Side Size Upsize Upsize Entry Closure Succes sful Closure Location (Fr) 1 (Fr) 2 (Fr) Remarks Device Remarks Femoral Right 5 Fr 6 Fr Exoseal artery Short Estimated blood loss: 5 ml Diagnostic catheters Device Type Used For End Catheter Placement MULTIPACK JL 4.0 5Fr Procedure catheter MULTIPACK 3DRC 5Fr Procedure catheter MULTIPACK Pigtail 5 Fr Procedure catheter Procedure Complications No complications Procedure Medications Medication Administration Route Dosage 0.9% NaCl I.V. 100 ml/hr Oxygen etCO2 Nasal cannula 2 l/min Heparin Flush Bag added to field 2 bags (1000units/500ml NS) Lidocaine 2% added to field 20 Versed I.V. 2 mg Fentanyl I.V. 100 mcg Heparin Bolus I.V. 2000 units Hemodynamics Rest BSA: 2.22 (m2) HGB: 13.3 (g/dl) O2 Consumption: Estimated: 264.57 (ml/min) O2 Co nsumption indexed: Estimated:119.18 (ml/min/m) Heart Rate: 72 (bpm) Pressure Samples Time Site Value (mmHg) Purpose Heart Use Rate(bpm) 9:22 LV 90/13,18 Snapshot 69 Snapshots Pre Cath Intra NCS Post Cath Vital Signs Time Heart Resp SPO2 etCO2 NIBP Rhythm Pain Sedation Rate (ipm) (%) (mmHg) (mmHg) Status Level (bpm) 8:59:58 58 33 97 27.8 113/68(91) NSR 0 (11) 10(A) , No pain 9:04:04 67 19 97 33.1 110/70(90) NSR 0 (11) 10(A) , No pain 9:08:10 69 18 96 34.6 107/64(82) NSR 0 (11) 10(A) , No pain 9:12:14 65 17 96 31.6 104/69(77) NSR 0 (11) 10(A) , No pain 9:16:18 58 18 97 32.4 101/66(94) NSR 0 (11) 10(A) , No pain 9:20:17 64 18 95 36.9 111/72(95) NSR 0 (11) 9(A) , No pain 9:24:25 65 17 94 37.6 109/64(93) NSR 0 (11) 9(A) , No pain 9:28:29 65 17 94 38.4 106/70(98) NSR 0 (11) 10(A) , No pain 9:32:35 64 16 95 32.4 105/65(88) NSR 0 (11) 10(A) , No pain Medications Time Medication Route Dose Verified Delivered Reason Notes Effectiveness by by 9:00:36 0.9% NaCl I.V. 100 Mannie Mannie Per physician ml/hr Thomas Guzman RN RN 9:00:45 Oxygen etCO2 2 Mannie Mannie for low 02 sats Nasal l/min Thomas Guzman cannula RN RN 9:00:56 Heparin Flush added 2 Mannie Mannie used for Bag to bags Thomas Guzman procedure (1000units/500ml field JOHNSON RN NS) 9:01:07 Lidocaine 2% added 20ml Mannie Mannie for local to vial Thomas Guzman anesthetic field JOHNSON RN 9:14:38 Versed I.V. 2 mg Mannie Mannie for sedation Thomas Guzman RN RN 9:14:48 Fentanyl I.V. 100 Mannie Mannie for sedation mcg Thomas Guzman RN RN 9:27:14 Heparin Bolus I.V. 2,000 Mannie Mannie for units Thmoas Guzman anticoagulation RN park attendant Log Time Note 8:02:56 Informed consent obtained and on chart 8:09:06 Procedure Status Elective Heart Cath (OP). 8:09:07 Time tracking: Regular hours (M-F 7:00 - 5:00) 8:09:11 Plan of Care:Hemodynamics will remain stable., Cardiac rhythm will remain stable., Comfort level will be maintained., Respiratory function will remain adequate., Patient/ family verbilizes understanding of procedure., Procedure tolerated without complication., Recovers from procedure without complications.. 8:19:33 Patient Weight : 231.49 lbs 8:19:39 Patient Height : 70 inches 8:19:43 Arrival Date: 04/19/2021 12:00:00 AM 8:23:12 Patient allergic to No known allergies 8:23:30 Stress Test: yes; abnormal INFERIOR 8:42:46 Mannie Guzman RN sent for patient. Start room use. 8:51:42 Patient received from Pre/Post Procedure Room to CCL 2 Alert and oriented. Tansferred to table in Supine position. 8:51:43 Warm blankets applied, and danielito hugger turned on for patient comfort. 8:51:43 Correct patient and procedure confirmed by team. 8:51:44 Vital chart was started 8:58:57 ECG and BP/O2 sat monitors applied to patient. 8:59:00 Baseline sample Acquired. 8:59:10 Full Disclosure recording started 8:59:18 H&P Date Dictated: 04/07/2021 Within 30 days and on chart., H&P Addendum completed by physician on day of procedure. (MUST COMPLETE FOR ALL OUTPATIENTS). 8:59:19 Pre-procedure instructions explained to patient. 8:59:19 Pre-op teaching completed and patient verbalized understanding. 8:59:21 Family in patients room. 8:59:22 Patient NPO since Midnight. 9:00:36 0.9% NaCl 100 ml/hr I.V. was administered by Mannie Guzman RN; Per physician; Verbal order read back and verified. 9:00:45 Oxygen 2 l/min etCO2 Nasal cannula was administered by Mannie Guzman RN; for low 02 sats; Verbal order read back and verified. 9:00:56 Heparin Flush Bag (1000units/500ml NS) 2 bags added to field was administered by Mannie Guzman RN; used for procedure; Verbal order read back and verified. 9:01:07 Lidocaine 2% 20ml vial added to field was administered by Mannie Guzman RN; for local anesthetic; Verbal order read back and verified. 9:02:22 Is patient on blood thinner?No 9:02:24 Patient diabetic? No. 9:02:26 Previous problem with sedation/anesthesia? No ? 9:02:27 Snore? Yes 9:02:28 Sleep apnea? No 9:02:29 Deviated septum? No 9:02:30 Opens mouth fully? Yes 9:02:30 Sticks out tongue? Yes 9:02:32 Airway obstruction? No ? 9:02:33 Dentures? No ? 9:02:35 Pre procedure: right dorsailis pedis pulse 1+ Palpable, but thready & weak; easily obliterated 9:02:38 Modified Philippe's test Ulnar > 7 seconds. 9:02:40 Patient pain scale 0/10 ?. 9:02:50 IV patent on arrival in left hand with 0.9% NaCl at [facility]. 9:07:47 Lab Result : BUN 25 mg/dl 9:07:47 Lab Result : Creatinine 1.3 mg/dl 9:07:47 Lab Result : eGFR NONAFRICAN 61.74619 ml/min 9:07:47 Lab Result : Hemoglobin 13.3 g/dl 9:07:47 Lab Result : Hematocrit 40.1 % 9:07:50 Lab results completed and on chart. 9:07:54 Right groin area was prepped with chlora-prep and draped in sterile fashion 9:07:54 Alarms reviewed by R. N. 9:07:55 Sharps counted by scrub and verified by R.N. 9:09:10 Use device set Femoral Dx 9:09:10 ACIST Syringe (91394) opened to sterile field. 9:09:11 Bag Decanter (2001S) opened to sterile field. 9:09:13 ACIST Hand Control (72455) opened to sterile field. 9:09:13 ACIST Manifold (85556) opened to sterile field. 9:09:14 Tegaderm 4 x 4 (1626W) opened to sterile field. 9:09:15 Medline Cath Pack ([id number]) opened to sterile field. 9:09:16 DIAGNOSTIC Multipack 5Fr catheter set (XY9148) opened to sterile field. 9:09:16 SHEATH 5FR [place] (MPI726) opened to sterile field. 9:09:17 EMERALD Guide Wire (169-733) opened to sterile field. 9:09:28 Rhythm: atrial fibrillation 9:12:04 --------ALL STOP TIME OUT------ 9:12:05 Final Timeout: patient, procedure, and site verified with staff and physician. All members of the team are in agreement. 9:12:05 Right groin site verified by team. 9:12:08 Fire Safety Assessment: A--An alcohol-based skin anteseptic being used preoperatively., C--Open oxygen or nitrous oxide is being used., D--An ESU, laser, or fiber-optic light is being used. 9:12:10 Physical assessment completed. ASA score P 2 - A patient with mild systemic disease as per Tacho Le MD. 9:12:30 2) 60-89 Mildly reduced kidney function, and other findings (as for stage 1) point to kidney disease. 9:12:33 Maximum allowable contrast dose (3.7 X eGFR X 0.75)169 ml. 9:12:36 Sedation plan: IV Moderate Sedation Medication:Versed, Fentanyl 9:14:33 Procedure started. 9:14:38 Versed 2 mg I.V. was administered by Mannie Guzman RN; for sedation; Verbal order read back and verified. 9:14:48 Fentanyl 100 mcg I.V. was administered by Mannie Guzman RN; for sedation; Verbal order read back and verified. 9:14:55 Local anesthetic to right femoral artery with Lidocaine 2% by Tacho Le MD.INITIAL ACCESS ONLY 9:15:11 Zero performed for pressure channel P1 9:16:07 A 5 Fr sheath was inserted into the Right Femoral artery 9:16:25 A MULTIPACK JL 4.0 5Fr catheter was advanced over the wire and used for Procedure. 9:18:37 LCA angiography performed. 9:18:39 Catheter removed. 9:18:44 A MULTIPACK 3DRC 5Fr catheter was advanced over the wire and used for Procedure. 9:20:04 RCA angiography performed. 9:20:05 Catheter exchanged over wire. 9:20:09 A MULTIPACK Pigtail 5 Fr catheter was advanced over the wire and used for Procedure. 9:21:37 LV gram done using VELEZ 9:21:52 Injector settings: Ml/sec: 10, Volume: 20, 9:22:16 LV hemodynamics recorded. 9:23:08 EF : 35 % 9:23:13 Catheter removed. 9:23:14 Proceeding to intervention. 9:23:18 Fountain OmniWire (65915) opened to sterile field. 9:23:19 SHEATH 6FR [place] (TUK608) opened to sterile field. 9:23:19 INFLATOR Merit BasixCompak (YQ0329) opened to sterile field. 9:24:03 Sheath upsized to a 6 Fr Short. 9:24:43 GUIDE 6FR JL 4.0 catheter ([id number]) opened to sterile field. 9:24:53 6 Fr JL 4 guide catheter was inserted over the wire 9:26:44 OMNI Pressure wire advanced. 9:27:14 Heparin Bolus 2,000 units I.V. was administered by Mannie Guzman RN; for anticoagulation; Verbal order read back and verified. 9:28:34 Wire advanced across lesion. 9:29:23 OM lesion measured at 1.07 with IFR 9:29:44 Wire removed. 9:29:45 Guide catheter removed. 9:29:50 EXOSEAL 6Fr (EX600) opened to sterile field. 9:30:31 Sheath removed intact; hemostasis achieved with Exoseal to the Right Femoral artery. 9:31:29 Procedure ended.(Physican Out) 9:31:41 Fluoroscopy time 02.20 minutes. 9:31:45 Fluoroscopy dose: 819 mGy 9:31:45 Flurop Dose total: 819 9:31:49 Dose Area Product 84162 mGy/cm. 9:31:53 Contrast amount:Isovue 300 100ml. 9:31:55 Maximum allowable dose exceeded? No. 9:31:56 Sharps counted by scrub and verified by R.N. 9:31:58 Post-op/insertion site Right Femoral artery dressed using a 4 x 4 and Tegaderm. 9:32:00 Post-procedure physical assessment completed. ASA score P 2 - A patient with mild systemic disease as per Tacho Le MD. 9:32:10 Post procedure rhythm: unchanged. 9:32:11 Estimated blood loss: 5 ml 9:32:13 Post procedure instruction explained to patient.Patient verbalizes understanding. 9:32:13 Patient needs reinforcement of post procedure teaching. 9:32:32 Procedure type changed to Cath procedure, Diagnostic procedure, LHC, LHC w/Coronaries, FFR/IVUS, FFR Initial, Sedation Charges, Moderate Sedation 10-24 minutes, PCI procedure, Hemochron ACT Test 9:32:54 Procedure and supply charges have been captured, reviewed, submitted and are correct. 9:32:56 [facility] Findings: mild to moderate CAD (<70%) 9:34:23 Procedure Complication : No complications 9:34:25 Vital chart was stopped 9:34:27 Operative report dictated upon procedure completion. 9:34:28 See physician's report for complete and final results. 9:34:30 Report given to Pre/Post Procedure Room. 9:34:33 Patient transfered to Pre/Post Procedure Room with Bed. 9:34:51 ACT drawn and resulted at 193 seconds. (normal therapeutic range 180-240 seconds). 9:37:29 Procedure ended. 9:37:29 Full Disclosure recording stopped 9:37:37 End room use (Document Last) Device Usage Item Name Manufacture Quantity Catalog Hospital Part Current Minimal L ot# / Number Charge Number Stock Stock Serial# Code ACIST Acist 1 48145 337890 008753 [id number] 20 Syringe Medical (59808) Systems Inc Bag Microtek 1 010273 73505 669369 5 Decanter Medical Inc. () ACIST Hand Acist 1 76444 555435 387109 629657 5 Control Medical (56561) Systems Inc ACIST Acist 1 63378 150625 315353 736843 5 Manifold Medical (54596) Systems Inc Tegaderm 4 3M 1 1626W 517624 951945 950053 5 x 4 (1626W) Medline Medline 1 [id number] 076834 40354 436305 5 Cath Pack ([id number]) DIAGNOSTIC Cardinal 1 MU9296 442513 43884 883911 30 Multipack Health 5Fr catheter set (CA4265) SHEATH 5FR Terumo 1 TSZ950 039102 431339 849320 5 [place] (UPL096) EMERALD Cardinal 1 502-455 588343 622246 504765 5 Guide Wire Health (502-455) MULTIPACK Cardinal 1 764612 5 JL 4.0 5Fr Health catheter MULTIPACK Cardinal 1 673556 5 3DRC 5Fr Health catheter MULTIPACK Cardinal 1 996353 5 Pigtail 5 Health Fr catheter Fountain Fountain 1 9043556 968144 40155 9927 5 OmniWire (53488) SHEATH 6FR Terumo 1 SZA943 695824 489736 946338 40 [place] (DTL634) INFLATOR Merit 1 YA0995 111047 326466 681516 15 Merit Medical BasixCompak (ZM5881) GUIDE 6FR Medtronic 1 WZ0FA18 967631 97888 036855 1 JL 4.0 catheter (YS1TC90) EXOSEAL 6Fr Cardinal 1 EX600 031588 913942 536281 10 (EX600) Health Signature Audit [place] Stage Time Signature Unsigned Intra-Procedure 04/19/2021 Emma Tapia 9:37:50 AM RT(R) Intra-Procedure 04/19/2021 Mannie 9:38:21 AM Thomas JOHNSON Intra-Procedure 04/19/2021 Tacho Sharma 9:38:35 AM Paresh GUEVARA Signatures Monitor : Emma Tapia Signature : RT Date : Time : Nurse : Mannie Guzman Signature : RN Date : Time : Performing Physician : Signature : Tacho Le MD Date : Time : [facility] [address] [place] [address]
[2021-04-19] MEDS ORDERED: COREG12.5 MG PO (07:50)
[2021-04-19] MEDS ORDERED: FUROSEMIDE40 MG PO (07:51)
[2021-04-19] MEDS ORDERED: KLOR-CON 1010 MEQ PO (07:51)
[2021-04-19 08:01] VITALS: BP 96/69; Ht 177.8 cm; Wt 105.4 kg
[2021-04-19 08:24] LABS: BASOPHILS 0.3 % (0-2); EOSINOPHILS 5.1 % (0-7); HEMATOCRIT 40.1 % (42.0-54.0); HEMOGLOBIN 13.3 g/dL (13.5-17.5); MCH 26.6 pg (26.0-34.0); MCHC 33.1 g/dL (31.0-37.0); MCV 80.4 fL (80.0-100.0); MEAN PLATELET VOLUME 7.9 fL (7.4-10.4); MONOCYTES 13.2 % (2-11); NEUTROPHILS 55.4 % (40-80); PLATELET COUNT 277 10x3/uL (130-400); RBC 4.99 10x6/uL (4.20-6.10); RDW 18.4 % (11.5-14.5)
[2021-04-19 08:33] LABS: ANION GAP 14.8 mmol/L (8-16); CALCIUM 8.9 mg/dL (8.5-10.1); CARBON DIOXIDE 24.1 mmol/L (21.0-32.0); CHOL - HDL RATIO 4.1 ratio (2.3-4.9); CREATININE - SERUM 1.3 mg/dL (0.6-1.3); LDL-HDL RATIO 2.7 ratio (1.5-3.5); POTASSIUM - SERUM 3.9 mmol/L (3.5-5.1)
--- NOTE | 2021-04-19 09:49 | NUR ---
PT ARRIVED BY STRETCHER. PLACED ON MONITORS. ASSESSMENT COMPLETED. VSS AT THIS TIME. CALL LIGHT WITHIN REACH. NO FAMILY AT BEDSIDE, BUT DR. CATHERINE CALLED AND SPOKE WITH PT'S ON TELEPHONE.
[2021-04-19] MEDS ORDERED: ALDACTONE25 MG PO (09:51)
[2021-04-19] MEDS ORDERED: PACERONE100 MG PO (09:51)
--- NOTE | 2021-04-19 10:05 | NUR ---
RIGHT GROIN DRESSING C/D/I. NO S/S OF HEMATOMA NOTED. CALL LIGHT WITHIN REACH. VSS AT THIS TIME. NO NEEDS.
--- NOTE | 2021-04-19 10:35 | NUR ---
RIGHT GROIN DRESSING C/D/I. NO S/S OF HEMATOMA NOTED. CALL LIGHT WITHIN REACH. VSS AT THIS TIME. PT RESTING COMFORTABLY. RIGHT PEDAL PULSE PALPABLE.
--- NOTE | 2021-04-19 11:10 | NUR ---
RIGHT GROIN DRESSING C/D/I. NO S/S OF HEMATOMA NOTED. CALL LIGHT WITHIN REACH. HEAD OF BED INC TO 30 DEGREES. TOLERATED WELL. SET UP WITH SANDWICH TRAY AND DRINK. DENIES NAUSEA/PAIN. RIGHT PEDAL PULSE PALPABLE.
--- NOTE | 2021-04-19 11:50 | NUR ---
RIGHT GROIN DRESSING C/D/I. NO S/S OF HEMATOMA NOTED. CALL LIGHT WITHIN REACH. PIV D/C'D WITH CATH TIP INTACT. TOLERATED WELL. PT INSTRUCTED TO GET UP AND DRESSED AT THIS TIME. NO ASSISTANCE NEEDED.
--- NOTE | 2021-04-19 12:15 | NUR ---
PT AMBULATED TO RESTROOM. VOIDED WITHOUT DIFFICULTY. STEADY GAIT NOTED. PT BACK TO ROOM. RIGHT GROIN DRESSING C/D/I. NO S/S OF HEMATOMA NOTED. DISCUSSED DISCHARGE INSTRUCTIONS WITH PT. WAITING FOR PT'S TO ARRIVE TO DISCHARGE HOME.
--- NOTE | 2021-04-19 13:15 | NUR ---
PT STILL WAITING ON RIDE. AMBULATING AROUND ROOM. NO S/S OF DISTRESS NOTED. RIGHT GROIN DRESSING C/D/I. NO S/S OF HEMATOMA NOTED.
--- NOTE | 2021-04-19 13:35 | NUR ---
PT TAKEN OUT TO VEHICLE BY WHEELCHAIR. NO S/S OF DISTRESS NOTED. ALL BELONGINGS AND PAPERWORK IN HAND.
--- NOTE | 2021-04-20 08:19 | OP ---
PATIENT NAME: SARTHAK MEZA MEDICAL RECORD: [id number] :67 LOCATION:[facility] ADMISSION DATE: SURGEON: RADHA CATHERINE MD DATE OF OPERATION: 04/19/2021 PROCEDURE: Left heart catheterization, selective coronary angiography plus IFR wire to the OM, right femoral artery approach. CATHETERS: 1. A 5-Persian sheath. 2. A 5/4 Kathia. 3. A 5/4 pig. The procedure was well tolerated. The patient returned to the infante. Sheath removed. ExoSeal device was placed. FINDINGS: Left ventriculography in 30-degree VELEZ view shows decreased EF 30% to 35% with probably moderate MR. CORONARY ANATOMY: Left main: Left main is free of disease. LAD: LAD is free of disease in diagonal system. CIRCUMFLEX: Has OM1, has a questionable stenosis in its proximal portion; however, this is not flow restrictive via IFR wire. RIGHT CORONARY ARTERY: Somewhat a codominant system, free of disease. IMPRESSION: Nonischemic cardiomyopathy. We will add Aldactone to his underlying beta blockade, pressure is somewhat marginal here post-sedation. We would like to add ARB versus Entresto in the near future to his medical regime. Repeat echo in several weeks to assess improvement in LV function and the extent of mitral regurgitation. TRANSINT:[id number] Voice Confirmation ID: [id number] DOCUMENT ID: [id number] RADHA CATHERINE MD at 0819 CC: [id number] DICTATION DATE: 04/19/21 0940 CLAMP CARRIER OPERATOR: 04/19/21 1938 [facility] 04/19/21 [facility] [address] [place] [id number]
== END 2021-04-19 13:35 | disposition home or self-care (01) ==
LOC: D.CATH 07:06
PROVIDERS: ATTEND Internal Medicine Interventional Cardiology
DX: I48.91 Unspecified atrial fibrillation (principal); R94.39 Abnormal result of other cardiovascular function study; R06.00 Dyspnea, unspecified; I10 Essential (primary) hypertension; I42.9 Cardiomyopathy, unspecified; R60.0 Localized edema